=== PATIENT | female | born 1945 | race Caucasian/White ===

== ENCOUNTER 2016-10-05 11:42 | Day surgery (SDC) | payer MEDICARE, OTHER ==
[2016-09-30 21:25] LABS: HEMATOCRIT 38.4 % (36.0-48.0); HEMOGLOBIN 11.9 g/dL (12.0-16.0)
--- NOTE | ~2016-10-05 | OP ---
Record Of Operation [facility] [address] [place]. [address] NAME: MANJINDER HARRIS : 41 STATUS : [facility]#: [id number] AGE: 70 ADM/REG DATE : 10/05/16 MR#: [id number] REPORT SERV DATE: 10/05/16 DICTATED BY: Magen DE LA ROSA DATE: 10/05/16 REPORT STATUS : Draft TRANSCRIBED BY: REBECCA DATE: 10/05/16 DATE OF PROCEDURE: 10/05/2016 PREOPERATIVE DIAGNOSES: 1. Basal cell carcinoma of the left upper nasofacial sulcus-left medial lower eyelid. 2. Defect of the left upper nasofacial sulcus-left medial lower eyelid secondary to Mohs micrographic surgical excision of basal cell carcinoma. POSTOPERATIVE DIAGNOSES: 1. Basal cell carcinoma of the left upper nasofacial sulcus-left medial lower eyelid. 2. Defect of the left upper nasofacial sulcus-left medial lower eyelid secondary to Mohs micrographic surgical excision of basal cell carcinoma. PROCEDURE: 1. Surgical excisional preparation of left nasofacial sulcus-left medial lower eyelid defect. 2. Reconstruction of left upper nasofacial sulcus-left medial lower eyelid defect with rotation flap closure. 3. Reconstruction of right medial canthal acquired deformity with rotation and Z-plasty closure. FINDINGS: A 11 mm wide x 12 mm tall defect of the left upper nasofacial sulcus-left medial lower eyelid. INDICATIONS: This 70-year-old female underwent Mohs micrographic surgical excision of basal cell carcinoma yesterday. At a separate consultation in my office, I had discussed the pros and cons, alternatives, benefits, risks, limitations, and complications associated with reconstruction (including problems with scarring, distortion of the eyelid, recurrence of tumor, reaction to sutures, infection, imponderables). She now presents for reconstruction and understands and wishes to proceed. No guarantees expressed. Proper consent obtained. DESCRIPTION OF PROCEDURE: She was taken into the operating room, given general oral endotracheal anesthesia in the supine position. The dressing on her face was removed revealing the defect as measured above. The entire face was prepped with Hibiclens and saline followed by isopropyl alcohol. None of these solutions got in her eyes. None of the alcohol got in the wound. Additionally, near the eye, diluted Betadine TEA (saline diluted Betadine solution) was used to prep around the eye. Sterile drapes were applied. The defect measured as stated above. The beveled edges were marked out for excision. The general area was injected with 0.5% Marcaine with 1:200,000 epinephrine and a 1% Xylocaine with 1:100,000 epinephrine. Five minutes elapsed for vasoconstriction. The beveled edges of the defect were then surgically excised with a 15C blade and the forceps. Next, a large flap development was made over the left side of the nose through the defect. This elevation was below the level of the muscle and above the level of the perichondrium and periosteum of the nasal skeleton. This was done with a [employer] needle Record Of Operation [facility] [address] [place]. [address] NAME: MANJINDER HARRIS MEL : 41 STATUS : [facility]#: [id number] AGE: 70 ADM/REG DATE : 10/05/16 MR#: [id number] REPORT SERV DATE: 10/05/16 DICTATED BY: Magen DE LA ROSA DATE: 10/05/16 REPORT STATUS : Draft TRANSCRIBED BY: REBECCA DATE: 10/05/16 tip cautery for flap elevation and hemostasis. This flap measured 3.5 cm tall and 2.5 cm wide. Next, a rotation flap was developed in the subcutaneous plane in the cheek. This was a similar amount of elevation. Next, these flaps were rotated on themselves, making the cheek flap rotated in a superior medial direction to prevent ectropion, these flaps were secured to themselves with 5-0 Vicryl which was sutured down to the periosteum of the nasofacial sulcus to keep the flaps from tempting up out of the sulcus. Dog-ear deformity inferiorly was excised in the standard fashion along the nasofacial sulcus and hemostasis was obtained with the [employer] needle tip cautery. Dog-ear area was closed with 6-0 Vicryl deep. Acquired deformity of the left medial upper eyelid and left side of the nose, the medial canthus was then reconstructed by elevating an eyelid rotation flap and rotating it superomedially and performed a Z-plasty excision in the area of the medial canthus. Hemostasis was obtained with electrocautery. All the edges fell together and no deep suture was needed in that area of the flap. The wound edges were treated with hydrogen peroxide and dried. Hemostasis was excellent. All the skin edges were then sealed with Dermabond. Great care was taken to keep any Dermabond out of the medial canthal area of the eye. The wound was then further secured with Mastisol and paper tape in an antitension fashion. Estimated blood loss was 3 mL. She was awakened, extubated, and taken to recovery room in good condition having tolerated the procedure well. Home going instructions included prescriptions for cephalexin 500 mg #14, 1 p.o. b.i.d. until taken; generic Zofran 8 mg ODT #9 one dissolved orally q.6 hours p.r.n. nausea or vomiting; generic Ultram 50 mg #20, one p.o. q.4-6 hours p.r.n. pain. Recheck in the office in 15 days. She is to keep the tape dry and intact. She is to avoid facial motions and keep the wound and her eyes and her nose and cheeks still. HJL/MODL Magen De La Rosa M.D. / [id number] CC: Brit Davila MD
[~2016-10-05 11:42] MED LIST: ALIGN4 MG PO; CALCIUM/VITAMIN D PO; COQ-1010 MG PO; ESTRACE VAGIN42.5 GM V; KLONO1 PO; MAG OXIDE250 MG PO; NEXIUM40 PO; NORITATE1% TOP; VITAMIN B-121000 MC1 SL; [UNRECOGNIZED DRUG - OTHER] PO
== END 2016-10-05 19:43 | disposition home or self-care (01) ==
LOC: SDC 11:42
PROVIDERS: Specialist
PROC: 0HX1XZZ Transfer Face Skin, External Approach (ICD-10-PCS; principal; 2016-10-05 13:15)
DX: C44.311 Basal cell carcinoma of skin of nose (principal); K21.9 Gastro-esophageal reflux disease without esophagitis; L71.9 Rosacea, unspecified; Z85.3 Personal history of malignant neoplasm of breast; Z88.5 Allergy status to narcotic agent; Z88.6 Allergy status to analgesic agent; Z79.2 Long term (current) use of antibiotics; Z79.899 Other long term (current) drug therapy; Z98.890 Other specified postprocedural states
CPT/HCPCS: 36415; 85014; 85018; 93005; J0690; J2250; J2370; J2405; J2710; J3010